=== PATIENT | female | born 1955 | race Two or more races ===

== ENCOUNTER 2023-08-07 10:56 | Inpatient (IN) | payer MEDICARE, OTHER ==
[~2023-08-07] VITALS: Ht 160 cm; Wt 101.6 kg
[2023-08-07] MEDS ORDERED: IV NS 0.9% 500 ML BAG IV ONE (11:30)
[2023-08-07 11:42] LABS: BASOPHILS # (AUTO) 0.1 K/uL (0.0-0.2); BASOPHILS % (AUTO) 0.6 % (0.0-2.0); EOSINOPHILS # (AUTO) 0.7 K/uL (0.0-0.7); HEMATOCRIT 33 % (33-45); HEMOGLOBIN 10.4 g/dL (11.5-14.8); LYMPHOCYTES % (AUTO) 9.2 % (20.0-44.0); MEAN CORPUSCULAR HEMOGLOBIN 29 PG (26.0-33.0); MEAN CORPUSCULAR HGB CONC 31 g/dl (31.0-36.0); MEAN CORPUSCULAR VOLUME 93 fL (82-100); MONOCYTES # (AUTO) 0.7 K/uL (0.1-1.30); MONOCYTES % (AUTO) 6.1 % (2.0-12.0); NEUTROPHILS # (AUTO) 8.2 K/uL (1.8-8.9); NEUTROPHILS % (AUTO) 77.1 % (43.0-81.0); PLATELET COUNT (AUTO) 210 K/uL (150-450); RED BLOOD CELL COUNT(AUTO) 3.56 MIL/uL (4.0-5.2); RED CELL DISTRIBUTION WIDTH 20.8 % (11.5-15.0); WHITE BLOOD COUNT (AUTO) 10.7 K/uL (4.3-11.0)
[2023-08-07 11:52] LABS: CALCIUM, SERUM 8.1 mg/dL (8.5-10.1)
[2023-08-07] MEDS ORDERED: SALMETEROL XINAFOATE IH (11:52)
[2023-08-07] MEDS ORDERED: BISA10SU11 RC (11:52)
[2023-08-07] MEDS ORDERED: SEVE800T8 PO (11:52)
[2023-08-07] MEDS ORDERED: CALC500T88 PO (11:52)
[2023-08-07] MEDS ORDERED: HYDR-4303 PO (11:52)
[2023-08-07] MEDS ORDERED: EPOE1000 IV (11:52)
[2023-08-07] MEDS ORDERED: MAGN400O6 PO (11:52)
[2023-08-07] MEDS ORDERED: SERT100T PO (11:52)
[2023-08-07] MEDS ORDERED: GABA-532 PO (11:52)
[2023-08-07] MEDS ORDERED: TOBR5DRO2 LEFTEYE (11:52)
[2023-08-07] MEDS ORDERED: MENT113O TP (11:52)
[2023-08-07] MEDS ORDERED: ACET-868 PO (11:52)
[2023-08-07] MEDS ORDERED: NA P133E RC (11:52)
[2023-08-07] MEDS ORDERED: RIFA550T PO (11:52)
[2023-08-07] MEDS ORDERED: BUDE0.5A4 IH (11:52)
[2023-08-07] MEDS ORDERED: CHOL200059 PO (11:52)
[2023-08-07] MEDS ORDERED: MIDO10TA PO (11:52)
[2023-08-07] MEDS ORDERED: NYST1POW11 TP (11:52)
[2023-08-07 11:55] LABS: INR 0.98 (0.91-1.10); PARTIAL THROMBOPLASTIN TIME 29.6 SEC (24.3-34.3); PROTHROMBIN TIME 10.4 SECS (9.2-11.1)
[2023-08-07 11:59] LABS: LACTIC ACID 0.6 mmol/L (0.4-2.0)
[2023-08-07 14:10] LABS: ALANINE AMINOTRANSFERASE 21 U/L (12-78); ALBUMIN 3.1 g/dL (3.4-5.0); ALKALINE PHOSPHATASE 138 U/L (46-116); ASPARTATE AMINOTRANSFERASE 16 U/L (15-37); BILIRUBIN,DIRECT 0.1 mg/dL (0.0-0.2); BILIRUBIN,TOTAL 0.2 mg/dL (0.2-1.0); CHLORIDE 101 mmol/L (98-107); POTASSIUM 5.2 mmol/L (3.5-5.1); SODIUM SERUM 138 mmol/L (136-145); TOTAL PROTEIN, SERUM 7.2 g/dL (6.4-8.2)
[2023-08-07 14:11] LABS: CARBON DIOXIDE 20 mmol/L (21-32); CREATININE 5.9 mg/dL (0.6-1.3); GLUCOSE 77 mg/dL (74-106); UREA NITROGEN, BLOOD 76 mg/dL (7-18)
[2023-08-07 15:00] VITALS: BP 109/46; TEMP 98.9; O2SAT 98
[2023-08-07] MEDS ORDERED: CALCIUM CARBONATE (1250) 500 MG TABLET PO PRN (15:00)
[2023-08-07] MEDS ORDERED: NA PHOS,M-B/NA PHOS,DI-BA 1 EA ENEMA RC PRN (15:00)
[2023-08-07] MEDS: ALBUTEROL HALF STRENGTH 1.25 MG/3 ML VIAL.NEB NEB SCH ×2 (15:00→19:54)
[2023-08-07] MEDS ORDERED: BISACODYL SUPP (10 MG) 10 MG/SUPP.RECT SUPP.RECT RC PRN (15:00)
[2023-08-07] MEDS ORDERED: Z GUARD REMEDY 4 OZ OINT TP PRN (15:00)
[2023-08-07] MEDS: IPRATROPIUM NEB FS 0.5 MG/2.5 ML AMPUL.NEB NEB SCH ×2 (15:00→19:54)
[2023-08-07] MEDS: SEVELAMER CARBONATE 800 MG TABLET PO SCH (17:20)
[2023-08-07] MEDS: GABAPENTIN 100 MG CAPSULE PO SCH (17:20)
[2023-08-07] MEDS: MIDODRINE HCL (5MG) 5 MG TABLET PO SCH (17:21)
[2023-08-07] MEDS: HYDROCODONE/APAP 5/325MG TABLET PO PRN (17:28)
[2023-08-07] MEDS: TOBRAMYCIN/DEXAMETH OPHTH SUSP 5 ML BOTTLE LEFTEYE SCH (17:29)
[2023-08-07 19:50] VITALS: O2SAT 97
[2023-08-07] MEDS: BUDESONIDE RESPULE INH 0.5 MG/2 ML AMPUL.NEB IH SCH (19:54)
[2023-08-07 20:05] VITALS: O2SAT 96
[2023-08-07] MEDS: RIFAXIMIN 550 MG TABLET PO SCH (20:42)
[2023-08-07] MEDS: ACETAMINOPHEN 325 MG TABLET PO PRN (20:44)
[2023-08-07 23:12] VITALS: BP 109/46; TEMP 98.9; O2SAT 96
[2023-08-07 23:42] VITALS: O2SAT 99
[2023-08-08] VITALS (17 sets, daily range): BP systolic 92–134; BP diastolic 44–67; TEMP 97.6–98.4; O2SAT 92–100
[2023-08-08] MEDS: TOBRAMYCIN/DEXAMETH OPHTH SUSP 5 ML BOTTLE LEFTEYE SCH ×5 (00:25→23:48)
[2023-08-08] MEDS: HYDROCODONE/APAP 5/325MG TABLET PO PRN (01:27)
[2023-08-08] MEDS: ALBUTEROL HALF STRENGTH 1.25 MG/3 ML VIAL.NEB NEB SCH ×4 (02:03→19:59)
[2023-08-08] MEDS: IPRATROPIUM NEB FS 0.5 MG/2.5 ML AMPUL.NEB NEB SCH ×4 (02:03→19:59)
[2023-08-08 06:56] LABS: BASOPHILS % (AUTO) 0.5 % (0.0-2.0); EOSINOPHILS # (AUTO) 0.7 K/uL (0.0-0.7); EOSINOPHILS % (AUTO) 10.2 % (0.0-6.0); HEMATOCRIT 31 % (33-45); HEMOGLOBIN 9.4 g/dL (11.5-14.8); LYMPHOCYTES # (AUTO) 1.1 K/uL (0.8-4.8); LYMPHOCYTES % (AUTO) 15.6 % (20.0-44.0); MEAN CORPUSCULAR HEMOGLOBIN 28 PG (26.0-33.0); MEAN CORPUSCULAR HGB CONC 30 g/dl (31.0-36.0); MEAN CORPUSCULAR VOLUME 93 fL (82-100); MONOCYTES # (AUTO) 0.5 K/uL (0.1-1.30); MONOCYTES % (AUTO) 6.2 % (2.0-12.0); NEUTROPHILS % (AUTO) 67.5 % (43.0-81.0); PLATELET COUNT (AUTO) 191 K/uL (150-450); RED BLOOD CELL COUNT(AUTO) 3.33 MIL/uL (4.0-5.2); RED CELL DISTRIBUTION WIDTH 21.4 % (11.5-15.0); WHITE BLOOD COUNT (AUTO) 7.4 K/uL (4.3-11.0)
[2023-08-08 07:07] LABS: CALCIUM, SERUM 7.8 mg/dL (8.5-10.1); CREATININE 6.7 mg/dL (0.6-1.3); MAGNESIUM 2.6 mg/dL (1.8-2.4); PHOSPHORUS 7.3 mg/dL (2.5-4.9); POTASSIUM 5.1 mmol/L (3.5-5.1)
[2023-08-08] MEDS: BUDESONIDE RESPULE INH 0.5 MG/2 ML AMPUL.NEB IH SCH ×2 (08:30→20:00)
[2023-08-08] MEDS: RIFAXIMIN 550 MG TABLET PO SCH ×2 (08:45→20:40)
[2023-08-08] MEDS: GABAPENTIN 100 MG CAPSULE PO SCH ×3 (08:45→16:32)
[2023-08-08] MEDS: CHOLECALCIFEROL 1,000 UNIT TABLET (VIT D3) PO SCH (08:45)
[2023-08-08] MEDS: SEVELAMER CARBONATE 800 MG TABLET PO SCH ×3 (08:45→17:02)
[2023-08-08] MEDS: MIDODRINE HCL (5MG) 5 MG TABLET PO SCH ×3 (08:48→16:32)
[2023-08-08] MEDS: ONDANSETRON HCL/PF 4 MG/2 ML VIAL IVP PRN ×2 (09:56→20:14)
[2023-08-08] MEDS: PROSOURCE / PROSTAT (PYXIS) 30 ML UDC PO SCH (16:32)
[2023-08-08] MEDS: ACETAMINOPHEN 325 MG TABLET PO PRN (19:53)
[2023-08-09] VITALS (17 sets, daily range): BP systolic 100–158; BP diastolic 42–74; TEMP 97.8–98.4; O2SAT 92–99
[2023-08-09] MEDS: IPRATROPIUM NEB FS 0.5 MG/2.5 ML AMPUL.NEB NEB SCH ×4 (02:18→20:27)
[2023-08-09] MEDS: ALBUTEROL HALF STRENGTH 1.25 MG/3 ML VIAL.NEB NEB SCH ×4 (02:18→20:27)
[2023-08-09] MEDS: TOBRAMYCIN/DEXAMETH OPHTH SUSP 5 ML BOTTLE LEFTEYE SCH ×4 (05:09→23:28)
[2023-08-09 06:40] LABS: ALBUMIN 2.7 g/dL (3.4-5.0); BASOPHILS # (AUTO) 0.1 K/uL (0.0-0.2); BASOPHILS % (AUTO) 0.8 % (0.0-2.0); BILIRUBIN,TOTAL 0.2 mg/dL (0.2-1.0); CREATININE 5.4 mg/dL (0.6-1.3); EOSINOPHILS # (AUTO) 0.7 K/uL (0.0-0.7); EOSINOPHILS % (AUTO) 9.8 % (0.0-6.0); HEMATOCRIT 31 % (33-45); HEMOGLOBIN 9.7 g/dL (11.5-14.8); LYMPHOCYTES # (AUTO) 1.2 K/uL (0.8-4.8); LYMPHOCYTES % (AUTO) 16.3 % (20.0-44.0); MAGNESIUM 2.4 mg/dL (1.8-2.4); MEAN CORPUSCULAR HEMOGLOBIN 29 PG (26.0-33.0); MEAN CORPUSCULAR HGB CONC 31 g/dl (31.0-36.0); MEAN CORPUSCULAR VOLUME 92 fL (82-100); MONOCYTES # (AUTO) 0.5 K/uL (0.1-1.30); MONOCYTES % (AUTO) 7.3 % (2.0-12.0); NEUTROPHILS # (AUTO) 4.8 K/uL (1.8-8.9); NEUTROPHILS % (AUTO) 65.8 % (43.0-81.0); PHOSPHORUS 5.7 mg/dL (2.5-4.9); PLATELET COUNT (AUTO) 188 K/uL (150-450); POTASSIUM 4.4 mmol/L (3.5-5.1); RED BLOOD CELL COUNT(AUTO) 3.36 MIL/uL (4.0-5.2); RED CELL DISTRIBUTION WIDTH 20.3 % (11.5-15.0); TOTAL PROTEIN, SERUM 6.6 g/dL (6.4-8.2); WHITE BLOOD COUNT (AUTO) 7.3 K/uL (4.3-11.0)
[2023-08-09] MEDS: BUDESONIDE RESPULE INH 0.5 MG/2 ML AMPUL.NEB IH SCH ×2 (08:10→20:27)
[2023-08-09] MEDS: MIDODRINE HCL (5MG) 5 MG TABLET PO SCH ×3 (09:40→17:00)
[2023-08-09] MEDS: PROSOURCE / PROSTAT (PYXIS) 30 ML UDC PO SCH ×2 (09:41→17:18)
[2023-08-09] MEDS: GABAPENTIN 100 MG CAPSULE PO SCH ×3 (09:41→17:18)
[2023-08-09] MEDS: VIT B CMPLX 3/FA/VIT C/BIOTIN 1 TAB TABLET PO SCH (09:41)
[2023-08-09] MEDS: RIFAXIMIN 550 MG TABLET PO SCH ×2 (09:41→20:39)
[2023-08-09] MEDS: CHOLECALCIFEROL 1,000 UNIT TABLET (VIT D3) PO SCH (09:41)
[2023-08-09] MEDS: SEVELAMER CARBONATE 800 MG TABLET PO SCH ×3 (09:42→17:18)
[2023-08-09] MEDS ORDERED: LORAZEPAM 0.5 MG TABLET PO PRN (21:00)
[2023-08-10] VITALS (14 sets, daily range): BP systolic 113–140; BP diastolic 55–94; TEMP 97.8–99.9; O2SAT 92–99
[2023-08-10] MEDS: IPRATROPIUM NEB FS 0.5 MG/2.5 ML AMPUL.NEB NEB SCH ×3 (02:18→13:24)
[2023-08-10] MEDS: ALBUTEROL HALF STRENGTH 1.25 MG/3 ML VIAL.NEB NEB SCH ×3 (02:18→13:24)
[2023-08-10] MEDS: TOBRAMYCIN/DEXAMETH OPHTH SUSP 5 ML BOTTLE LEFTEYE SCH ×3 (06:04→17:25)
[2023-08-10] MEDS: BUDESONIDE RESPULE INH 0.5 MG/2 ML AMPUL.NEB IH SCH (07:36)
[2023-08-10] MEDS: VIT B CMPLX 3/FA/VIT C/BIOTIN 1 TAB TABLET PO SCH (08:40)
[2023-08-10] MEDS: RIFAXIMIN 550 MG TABLET PO SCH (08:40)
[2023-08-10] MEDS: GABAPENTIN 100 MG CAPSULE PO SCH ×3 (08:40→17:25)
[2023-08-10] MEDS: PROSOURCE / PROSTAT (PYXIS) 30 ML UDC PO SCH ×2 (08:40→17:25)
[2023-08-10] MEDS: CHOLECALCIFEROL 1,000 UNIT TABLET (VIT D3) PO SCH (08:40)
[2023-08-10] MEDS: SEVELAMER CARBONATE 800 MG TABLET PO SCH ×3 (08:40→17:25)
[2023-08-10] MEDS: MIDODRINE HCL (5MG) 5 MG TABLET PO SCH ×3 (08:41→17:00)
[2023-08-10] MEDS ORDERED: EPOETIN ALFA-EPBX 10,000 UNIT/ML VIAL IV SCH (15:00)
[2023-08-11 06:07] LABS: HEPATITIS B SURFACE AB Non Reactive (.)
== END 2023-08-10 19:27 | DRG 312 ==
LOC: ER 11:08 → TELE-TD 14:29 → TELE1 14:41
PROC: 5A1D70Z Performance of Urinary Filtration, Intermittent, Less than 6 Hours Per Day (ICD-10-PCS; principal; 2023-08-08)
DX: I95.3 Hypotension of hemodialysis (principal); N18.6 End stage renal disease; J96.10 Chronic respiratory failure, unspecified whether with hypoxia or hypercapnia; I12.0 Hypertensive chronic kidney disease with stage 5 chronic kidney disease or end stage renal disease; Z93.0 Tracheostomy status; R13.10 Dysphagia, unspecified; G47.33 Obstructive sleep apnea (adult) (pediatric); J44.9 Chronic obstructive pulmonary disease, unspecified; Z91.012 Allergy to eggs; Z91.011 Allergy to milk products; Z79.899 Other long term (current) drug therapy; K59.00 Constipation, unspecified; E78.5 Hyperlipidemia, unspecified; G89.4 Chronic pain syndrome; Z93.1 Gastrostomy status; Z99.2 Dependence on renal dialysis; Z84.1 Family history of disorders of kidney and ureter; E66.01 Morbid (severe) obesity due to excess calories; Z68.39 Body mass index [BMI] 39.0-39.9, adult; Z88.7 Allergy status to serum and vaccine; D64.9 Anemia, unspecified; E83.41 Hypermagnesemia; E87.8 Other disorders of electrolyte and fluid balance, not elsewhere classified
CPT/HCPCS: 31720; 36415; 71045-TC; 80048-TC; 80053-TC; 80076-TC; 83605-TC; 83735-TC; 84100-TC; 84484-TC; 85025-TC; 85730-TC; 86706; 87040-TC; 87340; 90935-TC; 93307-TC; 94640-TC; 94799-TC; A4623; G0378; J0885; J2405; J7030; J7040

== ENCOUNTER 2024-09-20 17:23 | Inpatient (IN) | payer MEDICARE, OTHER ==
[~2024-09-20] VITALS: Ht 160 cm; Wt 101.6 kg
[~2024-09-20 17:23] MED LIST: ACET-868 PO; BISA10SU11 RC; BUDE0.5A4 IH; CALC500T88 PO; CHOL200059 PO; EPOE1000 IV; GABA-532 PO; HYDR-4303 PO; MAGN400O6 PO; MENT113O TP; MIDO10TA PO; NA P133E RC; NYST1POW11 TP; RIFA550T PO; SALMETEROL XINAFOATE IH; SERT100T PO; SEVE800T8 PO; TOBR5DRO2 LEFTEYE
[2024-09-20 18:59] LABS: BASOPHILS # (AUTO) 0.1 K/uL (0.0-0.2); BASOPHILS % (AUTO) 0.9 % (0.0-2.0); EOSINOPHILS # (AUTO) 0.4 K/uL (0.0-0.7); EOSINOPHILS % (AUTO) 6.5 % (0.0-6.0); HEMATOCRIT 31 % (33-45); HEMOGLOBIN 10.1 g/dL (11.5-14.8); LYMPHOCYTES # (AUTO) 0.7 K/uL (0.8-4.8); LYMPHOCYTES % (AUTO) 11.5 % (20.0-44.0); MEAN CORPUSCULAR HEMOGLOBIN 31 PG (26.0-33.0); MEAN CORPUSCULAR HGB CONC 33 g/dl (31.0-36.0); MEAN CORPUSCULAR VOLUME 95 fL (82-100); MONOCYTES # (AUTO) 0.5 K/uL (0.1-1.30); MONOCYTES % (AUTO) 8.4 % (2.0-12.0); NEUTROPHILS # (AUTO) 4.5 K/uL (1.8-8.9); NEUTROPHILS % (AUTO) 72.7 % (43.0-81.0); PLATELET COUNT (AUTO) 216 K/uL (150-450); RED BLOOD CELL COUNT(AUTO) 3.25 MIL/uL (4.0-5.2); RED CELL DISTRIBUTION WIDTH 13.9 % (11.5-15.0); WHITE BLOOD COUNT (AUTO) 6.2 K/uL (4.3-11.0)
[2024-09-20 19:14] LABS: CALCIUM, SERUM 8.4 mg/dL (8.5-10.1); CARBON DIOXIDE 25 mmol/L (21-32); CHLORIDE 102 mmol/L (98-107); CREATININE 4.6 mg/dL (0.6-1.3); GLUCOSE 78 mg/dL (74-106); POTASSIUM 5.9 mmol/L (3.5-5.1); SODIUM SERUM 135 mmol/L (136-145); UREA NITROGEN, BLOOD 38 mg/dL (7-18)
[2024-09-20 19:19] LABS: ALANINE AMINOTRANSFERASE 8 U/L (12-78); ALBUMIN 2.8 g/dL (3.4-5.0); ALKALINE PHOSPHATASE 174 U/L (46-116); ASPARTATE AMINOTRANSFERASE 28 U/L (15-37); BILIRUBIN,TOTAL 0.4 mg/dL (0.2-1.0); TOTAL PROTEIN, SERUM 6.8 g/dL (6.4-8.2)
[2024-09-20 19:26] LABS: LACTIC ACID 1.4 mmol/L (0.4-2.0)
[2024-09-20] MEDS ORDERED: SODIUM BICARBONATE SYR 50 MEQ/50 ML DISP.SYRIN ONE (19:47)
[2024-09-20 19:48] LABS: INR 1.08 (0.91-1.10); PARTIAL THROMBOPLASTIN TIME 28.3 SEC (24.3-34.3); PROTHROMBIN TIME 11.1 SECS (9.2-11.1)
[2024-09-20] MEDS: SODIUM POLYSTYRENE SULFONATE 15 G/60 ML BOTTLE PO ONE (19:48)
[2024-09-20] MEDS: SODIUM BICARBONATE SYR 50 MEQ/50 ML DISP.SYRIN IV ONE (19:48)
[2024-09-20] MEDS: ALBUTEROL FS 2.5 MG/3 ML VIAL.NEB NEB ONE (20:05)
[2024-09-20] MEDS ORDERED: ALBUTEROL FS 2.5 MG/3 ML VIAL.NEB ONE (20:06)
[2024-09-20] MEDS: PIPERACILLIN /TAZOBACTAM 3.375 G in IV D5W 50 ML IV ONE (20:55)
[2024-09-20] MEDS ORDERED: PIPERACI/TAZO 3.375GM/D5W 50ML PB IV ONE (21:08)
[2024-09-20] MEDS: VANCOMYCIN 1 GM in IV D5W 250 ML IV ONE (21:15)
[2024-09-21] MEDS ORDERED: EPOETIN ALFA-EPBX 10,000 UNIT/ML VIAL IV SCH
[2024-09-21] MEDS ORDERED: ACETAMINOPHEN 325 MG TABLET PO PRN
[2024-09-21] MEDS ORDERED: CALCIUM CARBONATE (1250) 500 MG TABLET PO PRN
[2024-09-21] MEDS ORDERED: ONDANSETRON HCL/PF 4 MG/2 ML VIAL IVP PRN
[2024-09-21] MEDS ORDERED: NA PHOS,M-B/NA PHOS,DI-BA 1 EA ENEMA RC PRN
[2024-09-21] MEDS ORDERED: MAGNESIUM HYDROXIDE 30 ML UDC PO PRN ×2
[2024-09-21] MEDS ORDERED: BISACODYL SUPP (10 MG) 10 MG/SUPP.RECT SUPP.RECT RC PRN
[2024-09-21] MEDS ORDERED: MAG HYDROX/AL HYDROX/SIMETH 30 ML UDC PO PRN
[2024-09-21] MEDS: TOBRAMYCIN/DEXAMETH OPHTH SUSP 5 ML BOTTLE LEFTEYE SCH
[2024-09-21] MEDS ORDERED: ZOLPIDEM TARTRATE 5 MG TABLET PO PRN
[2024-09-21] MEDS ORDERED: Z GUARD REMEDY 4 OZ OINT TP PRN
[2024-09-21] MEDS ORDERED: BUDESONIDE RESPULE INH 0.5 MG/2 ML AMPUL.NEB IH SCH
[2024-09-21] MEDS ORDERED: HYDROCODONE/APAP 5/325MG TABLET PO PRN
[2024-09-21] MEDS: VANCOMYCIN 1 GM in IV D5W 250ml IV ONE ×2 (01:00→21:20)
[2024-09-21] MEDS: ZOSYN IVPB 3.375 G in IV D5W 50ml IV ONE (01:00)
[2024-09-21 01:30] VITALS: BP 98/69; TEMP 98.4; O2SAT 96
[2024-09-21] MEDS ORDERED: TOBRAMYCIN OPHTH 5ML 5 ML BOTTLE ONE (02:46)
[2024-09-21] MEDS: ALBUTEROL FS 2.5 MG/3 ML VIAL.NEB NEB SCH (03:19)
[2024-09-21 05:05] VITALS: BP 92/46; TEMP 98.4; O2SAT 98
[2024-09-21 06:14] LABS: BASOPHILS % (AUTO) 0.7 % (0.0-2.0); EOSINOPHILS # (AUTO) 0.4 K/uL (0.0-0.7); EOSINOPHILS % (AUTO) 8.3 % (0.0-6.0); HEMATOCRIT 30 % (33-45); HEMOGLOBIN 9.7 g/dL (11.5-14.8); LYMPHOCYTES % (AUTO) 19.4 % (20.0-44.0); MEAN CORPUSCULAR HEMOGLOBIN 31 PG (26.0-33.0); MEAN CORPUSCULAR HGB CONC 32 g/dl (31.0-36.0); MEAN CORPUSCULAR VOLUME 97 fL (82-100); MONOCYTES # (AUTO) 0.6 K/uL (0.1-1.30); MONOCYTES % (AUTO) 11.5 % (2.0-12.0); NEUTROPHILS # (AUTO) 3.1 K/uL (1.8-8.9); NEUTROPHILS % (AUTO) 60.1 % (43.0-81.0); PLATELET COUNT (AUTO) 149 K/uL (150-450); RED BLOOD CELL COUNT(AUTO) 3.13 MIL/uL (4.0-5.2); RED CELL DISTRIBUTION WIDTH 14.3 % (11.5-15.0); WHITE BLOOD COUNT (AUTO) 5.2 K/uL (4.3-11.0)
[2024-09-21 06:32] LABS: CALCIUM, SERUM 8.3 mg/dL (8.5-10.1); CREATININE 5.2 mg/dL (0.6-1.3); MAGNESIUM 2.3 mg/dL (1.8-2.4); PHOSPHORUS 4.5 mg/dL (2.5-4.9); POTASSIUM 5.2 mmol/L (3.5-5.1)
[2024-09-21 06:44] LABS: THYROID STIMULATING HORMONE 7.12 uIU/mL (0.358-3.74)
[2024-09-21] MEDS: PANTOPRAZOLE 40 MG TABLET.DR PO SCH (07:51)
[2024-09-21] MEDS ORDERED: PIPERACILLIN /TAZOBACTAM 2.25 G in IV D5W 50 ML IV SCH (08:00)
[2024-09-21] MEDS ORDERED: VANCOMYCIN 500 MG in IV D5W 100 ML IV PRN (08:00)
[2024-09-21] MEDS: PIPERACILLIN /TAZOBACTAM 2.25 G in IV D5W 50 ML IV SCH (08:27)
[2024-09-21] MEDS: CHOLECALCIFEROL 1,000 UNIT TABLET (VIT D3) PO SCH (08:27)
[2024-09-21] MEDS: GABAPENTIN 100 MG CAPSULE PO SCH (08:27)
[2024-09-21] MEDS: SEVELAMER CARBONATE 800 MG TABLET PO SCH (08:28)
[2024-09-21] MEDS: Z GUARD REMEDY 4 OZ OINT TP SCH (09:40)
[2024-09-21 10:56] VITALS: BP 96/75; TEMP 97.9; O2SAT 100
[2024-09-21] MEDS: NYSTATIN TOP POWDER 15 GM BOTTLE TP SCH (11:10)
[2024-09-21 12:00] VITALS: BP 96/75; TEMP 98; O2SAT 99
[2024-09-21] MEDS ORDERED: FOLI0.8T2 PO (15:57)
[2024-09-21] MEDS ORDERED: PANT40TA49 PO (15:57)
[2024-09-21] MEDS ORDERED: CINA30TA2 PO (15:57)
[2024-09-21] MEDS ORDERED: LEVE1000 PO (15:57)
[2024-09-21] MEDS ORDERED: MELA3TAB41 PO (15:57)
[2024-09-21] MEDS ORDERED: ATOR40TA PO (15:57)
[2024-09-21] MEDS ORDERED: SENN-261 PO (15:57)
[2024-09-21] MEDS ORDERED: POLY17PO4 PO (15:57)
[2024-09-21] MEDS ORDERED: METO25TA6 PO (15:57)
[2024-09-21] MEDS ORDERED: DOCU100C36 PO (15:57)
[2024-09-21] MEDS ORDERED: CALC667C6 PO (15:57)
[2024-09-21] MEDS ORDERED: IPRA3AMP23 NEB ×2 (15:57)
[2024-09-21] MEDS ORDERED: APIX2.5T PO (15:57)
[2024-09-21] MEDS ORDERED: ASCO-495 PO (15:57)
[2024-09-21] MEDS ORDERED: ONDA4TAB5 PO (15:57)
[2024-09-21] MEDS ORDERED: FERR325T24 PO (15:57)
[2024-09-21] MEDS ORDERED: SODI10PO PO (15:57)
[2024-09-21] MEDS ORDERED: DIPH25TA27 PO (15:57)
[2024-09-21] MEDS ORDERED: MICO71PO11 TP (15:57)
[2024-09-21] MEDS ORDERED: LORA-258 PO (15:57)
[2024-09-21 16:00] VITALS: BP 103/68; TEMP 97.9; O2SAT 100
[2024-09-21] MEDS: EPOETIN ALFA-EPBX 10,000 UNIT/ML VIAL IV SCH (17:21)
[2024-09-21 20:00] VITALS: BP 107/53; TEMP 97.5; O2SAT 100
[2024-09-21] MEDS: SERTRALINE HCL 50 MG TABLET PO SCH (23:00)
[2024-09-22] VITALS: BP 121/76; TEMP 98.2; O2SAT 100
[2024-09-22 04:00] VITALS: BP 131/78; TEMP 98.4; O2SAT 98
[2024-09-22] MEDS ORDERED: VANCOMYCIN 500 MG in IV D5W 100 ML IV PRN (06:00)
[2024-09-22 06:40] LABS: BASOPHILS % (AUTO) 0.7 % (0.0-2.0); EOSINOPHILS # (AUTO) 0.3 K/uL (0.0-0.7); EOSINOPHILS % (AUTO) 8.9 % (0.0-6.0); HEMATOCRIT 30 % (33-45); HEMOGLOBIN 10.1 g/dL (11.5-14.8); LYMPHOCYTES # (AUTO) 0.7 K/uL (0.8-4.8); LYMPHOCYTES % (AUTO) 17.4 % (20.0-44.0); MEAN CORPUSCULAR HEMOGLOBIN 31 PG (26.0-33.0); MEAN CORPUSCULAR HGB CONC 34 g/dl (31.0-36.0); MEAN CORPUSCULAR VOLUME 92 fL (82-100); MONOCYTES # (AUTO) 0.5 K/uL (0.1-1.30); NEUTROPHILS # (AUTO) 2.3 K/uL (1.8-8.9); PLATELET COUNT (AUTO) 160 K/uL (150-450); RED BLOOD CELL COUNT(AUTO) 3.23 MIL/uL (4.0-5.2); RED CELL DISTRIBUTION WIDTH 13.4 % (11.5-15.0); WHITE BLOOD COUNT (AUTO) 3.8 K/uL (4.3-11.0)
[2024-09-22 07:09] LABS: CALCIUM, SERUM 8.6 mg/dL (8.5-10.1); PHOSPHORUS 4.3 mg/dL (2.5-4.9); POTASSIUM 4.6 mmol/L (3.5-5.1)
[2024-09-22 08:00] VITALS: BP 111/64; TEMP 98.5; O2SAT 98
[2024-09-22] MEDS: PIPERACILLIN /TAZOBACTAM 2.25 G in IV D5W 50 ML IV SCH (11:52)
[2024-09-22 12:00] VITALS: BP 120/62; TEMP 97.8; O2SAT 98
[2024-09-22] MEDS ORDERED: HEPARIN SODIUM, PORCINE 5000 UNITS/1 ML VIAL SQ SCH (14:00)
[2024-09-22 16:00] VITALS: TEMP 97.8; O2SAT 98
[2024-09-22] MEDS: ACETAMINOPHEN 325 MG TABLET PO PRN (18:00)
[2024-09-22 20:00] VITALS: BP 121/74; TEMP 97.8; O2SAT 98
[2024-09-22] MEDS: HEPARIN SODIUM, PORCINE 5000 UNITS/1 ML VIAL SQ SCH (22:09)
[2024-09-23] VITALS: BP 122/87; TEMP 98.1; O2SAT 98
[2024-09-23 04:00] VITALS: BP 125/67; TEMP 97.9; O2SAT 98
[2024-09-23 05:54] LABS: BASOPHILS % (AUTO) 1.1 % (0.0-2.0); EOSINOPHILS # (AUTO) 0.4 K/uL (0.0-0.7); EOSINOPHILS % (AUTO) 9.9 % (0.0-6.0); HEMATOCRIT 33 % (33-45); HEMOGLOBIN 10.8 g/dL (11.5-14.8); LYMPHOCYTES # (AUTO) 0.9 K/uL (0.8-4.8); LYMPHOCYTES % (AUTO) 21.5 % (20.0-44.0); MEAN CORPUSCULAR HEMOGLOBIN 31 PG (26.0-33.0); MEAN CORPUSCULAR HGB CONC 33 g/dl (31.0-36.0); MEAN CORPUSCULAR VOLUME 94 fL (82-100); MONOCYTES # (AUTO) 0.5 K/uL (0.1-1.30); MONOCYTES % (AUTO) 11.6 % (2.0-12.0); NEUTROPHILS # (AUTO) 2.3 K/uL (1.8-8.9); NEUTROPHILS % (AUTO) 55.9 % (43.0-81.0); PLATELET COUNT (AUTO) 172 K/uL (150-450); RED BLOOD CELL COUNT(AUTO) 3.45 MIL/uL (4.0-5.2); RED CELL DISTRIBUTION WIDTH 14.3 % (11.5-15.0); WHITE BLOOD COUNT (AUTO) 4.1 K/uL (4.3-11.0)
[2024-09-23 06:41] LABS: CALCIUM, SERUM 8.8 mg/dL (8.5-10.1); CREATININE 5.6 mg/dL (0.6-1.3); MAGNESIUM 2.2 mg/dL (1.8-2.4); PHOSPHORUS 5.2 mg/dL (2.5-4.9)
[2024-09-23 08:00] VITALS: BP 140/86; TEMP 97.9; O2SAT 98
[2024-09-23] MEDS ORDERED: LEVO500T90 PO (10:42)
[2024-09-23 12:00] VITALS: BP 144/98; TEMP 97.8; O2SAT 98
[2024-09-23] MEDS: MIDODRINE HCL (5MG) 5 MG TABLET PO PRN (13:22)
[2024-09-23] MEDS: EPOETIN ALFA-EPBX 10,000 UNIT/ML VIAL IV SCH (15:34)
[2024-09-23 16:00] VITALS: BP 111/67; TEMP 98.1; O2SAT 95
== END 2024-09-23 19:00 | DRG 208 ==
LOC: ER 17:29 → TELE1 09-21 00:39
PROVIDERS: ADMIT Student in an Organized Health Care Education/Training Program; ATTEND Nurse Practitioner Acute Care
PROC: 5A1945Z Respiratory Ventilation, 24-96 Consecutive Hours (ICD-10-PCS; principal; 2024-09-21)
PROC: 5A1D70Z Performance of Urinary Filtration, Intermittent, Less than 6 Hours Per Day (ICD-10-PCS; 2024-09-21)
DX: J15.9 Unspecified bacterial pneumonia (principal); N18.6 End stage renal disease; E44.0 Moderate protein-calorie malnutrition; I12.0 Hypertensive chronic kidney disease with stage 5 chronic kidney disease or end stage renal disease; J96.10 Chronic respiratory failure, unspecified whether with hypoxia or hypercapnia; J44.0 Chronic obstructive pulmonary disease with (acute) lower respiratory infection; Z99.11 Dependence on respirator [ventilator] status; D68.59 Other primary thrombophilia; J98.11 Atelectasis; E86.9 Volume depletion, unspecified; Z99.2 Dependence on renal dialysis; Z93.0 Tracheostomy status; Z93.1 Gastrostomy status; R13.10 Dysphagia, unspecified; M89.8X9 Other specified disorders of bone, unspecified site; E87.5 Hyperkalemia; E78.5 Hyperlipidemia, unspecified; Z86.16 Personal history of COVID-19; G47.33 Obstructive sleep apnea (adult) (pediatric); E66.01 Morbid (severe) obesity due to excess calories; Z88.7 Allergy status to serum and vaccine; Z91.011 Allergy to milk products; Z79.899 Other long term (current) drug therapy; D64.9 Anemia, unspecified; E55.9 Vitamin D deficiency, unspecified; K59.00 Constipation, unspecified; Z68.39 Body mass index [BMI] 39.0-39.9, adult; Z86.19 Personal history of other infectious and parasitic diseases; G89.29 Other chronic pain
CPT/HCPCS: 31720; 36415; 71045-TC; 80048-TC; 80076-TC; 80202-TC; 83605-TC; 83735-TC; 83880; 84100-TC; 84443-TC; 84484-TC; 85025-TC; 85730-TC; 86706; 87040-TC; 87340; 90935-TC; 94002-TC; 94003-TC; 94760-TC; 94799-TC; 99082-TC; A4223; G0378; J0885; J1644; J2543; J3370; J3490; J7030; J7050; J7060